=== PATIENT | male | born 1985 | race Two or more races ===

== ENCOUNTER 2024-12-10 07:09 | Emergency (ER) | payer MEDICAID, SELFPAY ==
[2024-12-10 07:10] VITALS: BMI 30.7
[2024-12-10 07:18] VITALS: BP 129/75; PULSE 121; RESP 18; TEMP 36.7; O2SAT 98
--- NOTE | 2024-12-10 07:28 | EDNOTE_ITS ---
<Statement entered by Lacy Huddleston MD - 12/10/24 09:40> As co-signing physician, I was present and available for consult prn. I concur with the plan and care as documented by the midlevel provider. Nausea/Vomit./Diarrhea-RME/HPI General Chief complaint: Nausea/Vomiting/Diarrhea Stated complaint: NOT FEELING WELL AFTER DRINKING Time Seen by Provider: 12/10/24 07:24 Arrival date/time: 12/10/24 07:09 Limitations: no limitations RME / HPI RME / HPI Narrative: 39yo male here s/p heavy drinking last night. He was drinking [employer] and lost track of how manyk. States he is disappointed because he has been sober for 13 years. Has vomited about 10 times since last night. No history of ever being admitted for withdrawal. No history of pancreatitis. No fever. No diarrhea. States feels shaky. Did not hit head. No seizure activity. Related Data Home Medications ?Medication ?Instructions ?Recorded ?Confirmed esomeprazole magnesium 20 mg 20 mg PO QDAY 04/27/21 capsule,delayed release (Nexium) Previous Rx's ?Medication ?Instructions ?Recorded meclizine 25 mg tablet 25 mg PO BID PRN dizziness # 20 tabs 04/27/21 ondansetron 4 mg disintegrating 4 mg PO Q8H PRN nausea and 12/10/24 tablet vomiting #10 tabs Allergies Allergy/AdvReac Type Severity Reaction Status Date / Time No Known Allergies Allergy Verified 12/10/24 07:12 Review of Systems Review of Systems Systems Reviewed: All systems reviewed, normal except as documented Constitutional Constitutional: Denies fever(s) Gastrointestinal Gastrointestinal: Reports as per HPI ED Exam General Limitations: Present no limitations General appearance: Present alert and other (mild distress, dry heaving in blue bag ) Head Head exam: Present atraumatic Eye Eye exam: Present normal appearance, PERRL and EOMI ENT ENT exam: Present normal exam, normal oropharynx and mucous membranes moist Neck Neck exam: Present normal inspection, full ROM and trachea midline Chest Chest inspection: Present normal inspection and symmetric chest wall rise Respiratory Respiratory exam: Present normal lung sounds bilaterally Cardiovascular Cardiovascular exam: Present regular rate, normal rhythm and normal heart sounds Abdominal Exam Abdominal exam: Present soft and normal bowel sounds Extremities Exam Extremities exam: Present normal inspection and full ROM Back Exam Back exam: Present normal inspection and full ROM Neurological Exam Neurological exam: Present alert, oriented X3 and CN II-XII intact Psychiatric Psychiatric exam: Present normal affect and normal mood Skin Skin exam: Present warm, dry, intact and normal color Course Quality Measures none Orders Category Date Time Status DiphenhydrAMINE INJ [Benadryl Inj] Med 12/10/24 07:28 Discontinued 50 mg IM X1 ONE Ketorolac Inj [Toradol Inj] Med 12/10/24 07:28 Discontinued 30 mg IM X1 ONE LORazepam [Ativan] Med 12/10/24 07:28 Discontinued 1 mg PO X1 ONE Ondansetron Odt [Zofran Odt] Med 12/10/24 07:28 Discontinued 4 mg PO X1 ONE Vital Signs Vital signs: Vital Signs Temperature 98.0 F 12/10/24 07:18 Pulse Rate 121 H 12/10/24 07:18 Respiratory Rate 18 12/10/24 07:18 Blood Pressure 129/75 12/10/24 07:18 Pulse Oximetry (%) 98 12/10/24 07:18 Nausea/Vomiting/Diarrhea MDM Narrative MDM Narrative:: 3-year-old male with acute alcohol abuse. Does not warrant further workup due to mild clinical findings. Responded to medication, discussed hydration . advise follow-up with PCP return to ER symptoms worsen Patient data External records reviewed:: [facility] previous records Clinical information provided by:: patient Social determinants that could affect healthcare access:: alcohol use Patient has the following chronic illnesses:: hx of alcoholism, in remission How is presenting disease/condition affected by chronic disease/condition?: exa cerbated by Evaluation data The following diagnostics were reviewed and interpreted by me:: other (specify) (none) Lab and/or radiology exams considered but not ordered:: CMP and lipase were considered however due to national shortage of lipase testing and unlikely to change the prognosis for discharge today opted against workup rather opted for medical interventions Interpretation Summary: Nontender breath Medications / Prescriptions Medications / Prescriptions considered but not ordered:: Benzos for home considered however due to acute abuse unlikely to go into withdrawal. Medication administrations:: Medication Administration History Discontinued Medications Diphenhydramine HCl (Diphenhydramine Inj 50 Mg/Ml Vial) 50 mg IM X1 ONE Stop: 12/10/24 07:29 Last Admin: 12/10/24 07:42 Dose: 50 mg Documented By: DO Ketorolac Tromethamine (Ketorolac Inj 30 Mg/Ml Vial) 30 mg IM X1 ONE Stop: 12/10/24 07:29 Last Admin: 12/10/24 07:43 Dose: 30 mg Documented By: DO Lorazepam (Lorazepam 0.5 Mg Tablet) 1 mg PO X1 ONE Stop: 12/10/24 07:29 Last Admin: 12/10/24 07:40 Dose: 1 mg Documented By: DO Ondansetron HCl (Ondansetron Odt 4 Mg Tabrap) 4 mg PO X1 ONE; Protocol Stop: 12/10/24 07:29 Last Admin: 12/10/24 07:41 Dose: 4 mg Documented By: DO See above Consultations Consultation(s) initiated? (list below): No Diagnosis Nausea Differential Diagnosis: traveler's diarrhea, food poisoning, gastroenteritis, clostridium difficile infection, drug-induced nausea and vomiting, dehydration and other Most likely diagnosis given after review of the tests above:: Alcohol abuse Vomiting Admission Indicated Admission indicated?: not indicated Admission Request Was there a request for admission?: No Disposition Plan Disposition Plan: Discharge Discharge Attestation Discharge Attestation: The patient and all family members were given an opportunity to ask questions and understood the discharge instructions. Discharge instructions specifically effects, indications for sooner follow up or return to the emergency department, and the expected course of current diagnosis. Patient condition: Stable Discharge Plan Plan Patient Disposition: HOME (Self Care) Discharge Disposition comment: f/u with pcp in 2-3days Prescriptions/Referrals Prescriptions/Med Rec: New ondansetron 4 mg tablet,disintegrating 4 mg PO Q8H PRN (Reason: nausea and vomiting) Qty: 10 0RF No Action esomeprazole magnesium [Nexium] 20 mg Capsule,Delayed Release(Dr/Ec) 20 mg PO QDAY meclizine 25 mg tablet 25 mg PO BID PRN (Reason: dizziness) Qty: 20 0RF Problem List Clinical Impression: Alcohol abuse, Vomiting Patient/Caregiver Discharge Instructions Education Materials: ED Diet for Vomiting or ... Print Language: Tajik Stand Alone Forms: Nevin Award Info., Patient Portal Info Letter PA/PLANTING MATERIAL CARRIER Supervising Physician PA/PLANTING MATERIAL CARRIER Supervising Physician: Dr. Huddleston
[2024-12-10] MEDS: ONDANSETRON ODT 4 MG TABRAP PO (07:41)
[2024-12-10] MEDS: KETOROLAC INJ 30 MG/ML VIAL IM (07:43)
[2024-12-10 07:50] VITALS: PULSE 102
== END 2024-12-10 08:11 | disposition home or self-care (01) ==
LOC: SERX 08:10
PROVIDERS: Emergency Provider Emergency Medicine; PCP Family Medicine
DX: F10.10 Alcohol abuse, uncomplicated (principal); R11.2 Nausea with vomiting, unspecified
CPT/HCPCS: 96372; 99283; J1200; J1885; Q0162; A9270

== ENCOUNTER 2025-01-30 22:51 | Emergency (ER) | payer MEDICAID, SELFPAY ==
[2025-01-30 22:52] VITALS: BMI 28.8
[2025-01-30 23:23] VITALS: BP 133/90; PULSE 100; RESP 18; TEMP 36.6; O2SAT 97
--- NOTE | 2025-01-30 23:30 | EDNOTE_ITS ---
ED Abdominal Pain RME/HPI General Chief Complaint: Nausea/Vomiting/Diarrhea Stated complaint: DIZZINESS AND VOMITING X 2DAYS Time seen by provider: 01/30/25 23:29 Arrival date/time: 01/30/25 22:51 RME / HPI RME / HPI narrative: See [facility] for Dr. Beck's HPI Documentation. Related Data Home Medications ?Medication ?Instructions ?Recorded ?Confirmed esomeprazole magnesium 20 mg 20 mg PO QDAY 04/27/21 capsule,delayed release (Nexium) Previous Rx's ?Medication ?Instructions ?Recorded meclizine 25 mg tablet 25 mg PO BID PRN dizziness # 20 tabs 04/27/21 ondansetron 4 mg disintegrating 4 mg PO Q8H PRN nausea and 12/10/24 tablet vomiting #10 tabs famotidine 40 mg tablet 40 mg PO .bedtime #30 tabs 1 04/02/24 omeprazole 40 mg capsule,delayed 40 mg PO QDAY #30 cap s 01/31/25 release ondansetron 4 mg disintegrating 4 mg PO TID PRN nausea and 01/31/25 tablet vomiting 30 days #10 tabs Allergies Allergy/AdvReac Type Severity Reaction Status Date / Time ibuprofen (From Advil) Allergy Mild RASH Verified 01/30/25 22:53 Review of Systems Review of Systems Systems Reviewed: All systems reviewed, normal except as documented Past Medical History Social History SMOKING STATUS: Never smoker ALCOHOL: Current ED Exam Narrative Physical exam: See [facility] for Dr. Beck's Physical Exam Documentation. Course Quality Measures none Orders Category Date Time Status Saline [Insert IV] NOW Care 01/30/25 23:[address] abdomen pelvis wo con Stat Exams 01/30/25 23:33 Taken US gall bladder Stat Exams 01/31/25 00:04 Taken Amylase Stat Lab 01/30/25 23:45 Completed Bilirubin,Direct Stat Lab 01/30/25 23:45 Completed CBC Stat Lab 01/30/25 23:45 Completed CMP [Comprehensive Metabolic Panel] Stat Lab 01/30/25 23:45 Completed Lipase Stat Lab 01/30/25 23:45 Completed Magnesium Stat Lab 01/30/25 23:45 Completed UA, C/S IF [Urinalysis, C/S if Indicated] Stat Lab 01/30/25 00:34 Completed Famotidine Inj [Pepcid Inj] Med 01/30/25 23:32 Discontinued 20 mg IVP X1 ONE Morphine* Inj Med 01/30/25 23:32 Discontinued 4 mg IV X1 ONE Ondansetron Inj [Zofran Inj] Med 01/30/25 23:32 Discontinued 4 mg IVP X1 ONE Pantoprazole Inj [Protonix Inj] Med 01/30/25 23:32 Discontinued 40 mg IVP X1 ONE Ringers Lactated 1000 ml [Lactated Ringers] 1,000 ml Med 01/30/25 23:30 Discontinued IV 1,000 mls/hr Sodium Chloride 0.9% 1000 ml [Ns] 1,000 ml Med 01/31/25 00:26 Discontinued IV 999 mls/hr Vital Signs Vital signs: Vital Signs Temperature 97.9 F 01/30/25 23:23 Pulse Rate 100 01/30/25 23:23 Respiratory Rate 18 01/30/25 23:23 Blood Pressure 133/90 H 01/30/25 23:23 Pulse Oximetry (%) 97 01/30/25 23:23 Oxygen Delivery Method Room Air 01/30/25 23:23 Abdominal Pain MDM MDM Narrative MDM Narrative:: This section includes all my notes and documentations, including HPI, PE, and ED course. Bill Beck MD HPI: 39 y/o male with Hx of Alcohol Abuse presents with upper abdominal pain and vomiting x approximately 48 hours. No other complaints. ROS: All negative except as documented in HPI. Physical Exam: General: Alert and oriented. Appears uncomfortable. Eyes: Conjunctivae and lids clear. ENT: No nasal congestion. Neck: Supple. Heart: RRR. Lungs: No respiratory distress. Good air movement. No rhonchi, wheezing, rales. Abdomen: Soft with epigastric tenderness. Normal bowel sounds. No distension. No rebound or guarding. Back: No CVA tenderness. Skin: Warm and dry. Neuro: Alert and oriented X 3. I reviewed all diagnostic test results: My review of the Gall Bladder US report is: No acute findings. My review of the Abdomen/Pelvis CT report is: No acute findings. Blood tests and urine tests unremarkable. At this point, diagnoses include: Stomach Ulcer Treatment here included: IVF Zofran 4 mg IV Morphine 4 mg IV Famotidine 20 mg IV Protonix 40 mg IV He felt much better. Recommended more outpatient workup. Based on my best medical judgment, made decision no further evaluation or treatment indicated at this time. Patient understands and agrees to the discharge instructions customized and printed, see below. Discharge instructions from Dr. Beck: ?After evaluation, your symptoms are due to stomach ulcer (see attached hand out).? There is no emergency such as appendicitis needing emergent surgery. ?To help heal the ulcer, take Omeprazole 40 mg every morning and Famotidine 40 mg at bedtime for a month. ?Zofran for nausea/vomiting.? Clear liquid diet for 24 hours.? Then slowly advance diet as tolerated. ?Avoid food and beverages that can trigger and worsen ulcers.? See attached handout. ?See a private doctor on 02/01/2025. Ask to review all test results and official radiology reports, to make sure you receive all necessary follow-ups and monitoring. To make sure there is no serious intra-abdominal condition, ask for help with more investigation not available here in the ER.? Such as EGD or scoping the stomach, colonoscopy or scoping the colon, and referral to see chocolate production machine operator. ?Seek immediate medical care with worsening or with any concerns. Bill Beck MD Patient data External records reviewed:: [facility] previous records (Reviewed prior ED records from 12/10/24. Patient was seen for Alcohol abuse.) Clinical information provided by:: patient Social determinants that could affect healthcare access:: alcohol use Patient has the following chronic illnesses:: None reported How is presenting disease/condition affected by chronic disease/condition?: no chronic disease Evaluation data The following diagnostics were reviewed and interpreted by me:: lab results and radiology exam(s) Lab and/or radiology exams considered but not ordered:: None Interpretation Summary: I reviewed all diagnostic test results: My review of the Gall Bladder US report is: No acute findings. My review of the Abdomen/Pelvis CT report is: No acute findings. Blood tests and urine tests unremarkable. Medications / Prescriptions Medications or Prescriptions considered but not ordered:: None Medication administrations:: Medication Administration History Discontinued Medications Famotidine (Famotidine Inj 10 Mg/Ml Vial 2 Ml) 20 mg IVP X1 ONE Stop: 01/30/25 23:33 Last Admin: 01/30/25 23:50 Dose: 20 mg Documented By: BRITTANIE Lactated Ringer's (Lactated Ringers) 1,000 mls @ 1,000 mls/hr IV .Q1H ONE Stop: 01/31/25 00:29 Last Infusion: 01/31/25 00:54 Dose: Infused Documented By: Admin: 01/30/25 23:54 Dose: 1,000 mls/hr Documented By: BRITTANIE Sodium Chloride (Ns) 1,000 mls @ 999 mls/hr IV .Q1H1M ONE Stop: 01/31/25 01:26 Last Infusion: 01/31/25 02:42 Dose: Infused Documented By: Admin: 01/31/25 01:07 Dose: 999 mls/hr Documented By: BRITTANIE Morphine Sulfate (Morphine Sulf Inj 4 Mg/Ml Vial) 4 mg IV X1 ONE Stop: 01/30/25 23:33 Last Admin: 01/30/25 23:48 Dose: 4 mg Documented By: BRITTANIE Ondansetron HCl (Ondansetron Inj 2 Mg/Ml Inj 2 Ml) 4 mg IVP X1 ONE; Protocol Stop: 01/30/25 23:33 Last Admin: 01/30/25 23:46 Dose: 4 mg Documented By: BRITTANIE Pantoprazole Sodium (Pantoprazole Inj 40 Mg Vial) 40 mg IVP X1 ONE Stop: 01/30/25 23:33 Last Admin: 01/30/25 23:52 Dose: 40 mg Documented By: BRITTANIE Treatment here included: IVF Zofran 4 mg IV Morphine 4 mg IV Famotidine 20 mg IV Protonix 40 mg IV Consultations Consultation(s) initiated? (list below): No Diagnosis Differential diagnosis abdominal pain: abdominal pain, pancreatitis and other (Cirrhosis, GERD, Ulcer) Most likely diagnosis given after review of the tests above:: Stomach Ulcer Admission Indicated Admission indicated?: not indicated Explain why admission is indicated or not indicated:: With significant improvement and no condition needing emergent intervention, there was no indication for admission. Admission Request Was there a request for admission?: No Disposition Plan Disposition Plan: Discharge Discharge Attestation Discharge Attestation: The patient and all family members were given an opportunity to ask questions and understood the discharge instructions. Discharge instructions specifically effects, indications for sooner follow up or return to the emergency department, and the expected course of current diagnosis. Patient condition: Stable Discharge Plan Plan Patient Disposition: HOME (Self Care) Prescriptions/Referrals Prescriptions/Med Rec: New famotidine 40 mg tablet 40 mg PO .bedtime Qty: 30 0RF omeprazole 40 mg capsule,delayed release(DR/EC) 40 mg PO QDAY Qty: 30 0RF ondansetron 4 mg tablet,disintegrating 4 mg PO TID PRN (Reason: nausea and vomiting) 30 Days Qty: 10 0RF No Action esomeprazole magnesium [Nexium] 20 mg Capsule,Delayed Release(Dr/Ec) 20 mg PO QDAY meclizine 25 mg tablet 25 mg PO BID PRN (Reason: dizziness) Qty: 20 0RF ondansetron 4 mg tablet,disintegrating 4 mg PO Q8H PRN (Reason: nausea and vomiting) Qty: 10 0RF Referrals: Temporary Provider,ED [Physician, Emergency Medicine] - In 1 week Problem List Clinical Impression: Stomach ulcer Patient/Caregiver Discharge Instructions Discharge Activity: activity as tolerated Education Materials: ED PUD Additional Instructions: Discharge instructions from Dr. Beck: ?After evaluation, your symptoms are due to stomach ulcer (see attached handout).? There is no emergency such as appendicitis needing emergent surgery. ?To help heal the ulcer, take Omeprazole 40 mg every morning and Famotidine 40 mg at bedtime for a month. ?Zofran for nausea/vomiting.? Clear liquid diet for 24 hours.? Then slowly advance diet as tolerated. ?Avoid food and beverages that can trigger and worsen ulcers.? See attached handout. ?See a private doctor on 02/01/2025. Ask to review all test results and official radiology reports, to make sure you receive all necessary follow-ups and monitoring. To make sure there is no serious intra-abdominal condition, ask for help with more investigation not available here in the ER.? Such as EGD or scoping the stomach, colonoscopy or scoping the colon, and referral to see chocolate production machine operator. ?Seek immediate medical care with worsening or with any concerns. Instrucciones de marie del Dr. Beck: ?Tras la evaluaci?n, valentin s?ntomas se deben a hailee ?lcera estomacal (catrachita folleto adjunto). No se trata de hailee emergencia, debbie apendicitis, que requiera cirug?a urgente. ?Para ayudar a cicatrizar la ?lcera, tome 40 mg de omeprazol cada ma?chelsea y 40 mg de famotidina antes de acostarse rula un mes. ?Para las n?useas y los v?mitos, tome Zofran. Siga hailee dieta l?quida alireza rula 24 horas. Posteriormente, vaya introduciendo gradualmente nuevos alimentos seg?n forrest tolerancia. ?Evite los alimentos y bebidas que puedan desencadenar o empeorar las ?lceras. Consulte el folleto adjunto. ?Consulte a un m?dico particular el 5 2024. Solicite revisar todos los resultados de las pruebas y los informes radiol?gicos oficiales para asegurarse de recibir el seguimiento y la monitorizaci?n necesarios. Para descartar cualquier afecci?n intraabdominal grave, solicite m?s pruebas diagn?sticas que no est?n disponibles en urgencias. Pruebas debbie hailee endoscopia digestiva marie (DARSHAN) o hailee colonoscopia, y la derivaci?n a un gastroenter?logo. ?Busque atenci?n m?dica inmediata si los s?ntomas empeoran o si tiene alguna inquietud. Print Language: Prydeinig Stand Alone Forms: Nevin Award Info., Patient Portal Info Letter
--- NOTE | 2025-01-30 23:33 | XR_ITS ---
Examination: CT abdomen and pelvis without contrast. Coronal 3-D reconstructions. Sagittal 2-D reconstructions. Date and time of exam: January 31, 2025, 0134 hours INDICATIONS: Dizziness vomiting abdominal pain beginning 2 days ago CTDI: vol (mGy): 8.24 DLP: (mGycm): 481 Technique: Axial images of the abdomen have been obtained, 3 mm slice thickness Intravenous contrast material has not been administered. Low dose protocols were performed. One or more of the following dose reduction techniques were used; automated exposure control, adjustment of the mA and/or KV according to patient size, use of iterative reconstruction technique. Findings: Severe diffuse fatty infiltration throughout the liver Hepatomegaly 18 cm Spleen is not enlarged No gallstones No pancreatic or adrenal mass Bilateral renal calculi, the largest left kidney 9 mm Aorta normal size Normal appendix No bowel obstruction or diverticulitis Transverse prostate dimension 4.1 cm No bladder mass or bladder calculi Moderate disc narrowing L5-S1 IMPRESSION: Hepatomegaly with severe diffuse fatty infiltration throughout the liver Bilateral renal calculi, minimal perinephric stranding, no hydronephrosis or ureteral calculi, consider urinary tract infection Normal appendix No bowel obstruction
[2025-01-30] MEDS: ONDANSETRON INJ 2 MG/ML INJ 2 ML 4 MG IVP (23:46)
[2025-01-30] MEDS: MORPHINE SULF INJ 4 MG/ML VIAL IV (23:48)
[2025-01-30 23:49] LABS: Basophils # (Auto) 0.0 Thou/mm3 (0.0-0.2); Basophils % (Auto) 0 % (0-2.5); Eosinophils # (Auto) 0.0 Thou/mm3 (0.0-0.5); Eosinophils % (Auto) 0 % (0-10); Hematocrit 49.0 % (41.0-53.0); Hemoglobin 17.8 g/dL (13.5-16.0); Immature Granulocytes Auto 0.02 Thou/mm3 (0.00-0.00); Lymphocytes # (Auto) 0.6 Thou/mm3 (1.0-4.8); Lymphocytes % (Auto) 5 % (10-50); Mean Corpuscular HGB Conc 36.3 g/dl (31.0-37.0); Mean Corpuscular Hemoglobin 31.2 pg (25.0-35.0); Mean Corpuscular Volume 86 fL (80-100); Monocytes # (Auto) 0.1 Thou/mm3 (0.0-0.8); Monocytes % (Auto) 1 % (0-12); Neutrophils # (Auto) 11.1 Thou/mm3 (1.8-7.7); Neutrophils % (Auto) 94 % (37-80); Nucleated Red Blood Cell # 0.00 Thou/mm3 (0.00-0.00); Nucleated Red Blood Cell % 0 /100 WBC (0); Platelet Count 217 Thou/mm3 (140-440); RDW Standard Deviation 38.8 fL (35.1-43.9); Red Blood Count 5.70 Miln/mm3 (4.50-5.90); White Blood Count 11.8 Thou/mm3 (3.8-10.6)
[2025-01-30] MEDS: FAMOTIDINE INJ 10 MG/ML VIAL 2 ML 20 MG IVP (23:50)
[2025-01-30] MEDS: RINGERS LACTATED 1000 ML 1,000 ML IV (23:54)
--- NOTE | 2025-01-31 00:04 | XR_ITS ---
Examination: Abdomen sonogram, Limited Date and time of exam: 01/31/2025, 12:50 a.m. INDICATION: Right upper quadrant pain, nausea for 3 days COMPARISON: Technique: Real-time garcia scale transabdominal sonographic images of the upper abdomen obtained. FINDINGS: Gallbladder: No cholelithiasis or sludge. No gallbladder wall thickening or pericholecystic fluid. No reported pain with direct transducer pressure over the gallbladder. The common bile duct measures 0.35 cm. The pancreas is obscured by bowel gas. Liver is mildly enlarged, demonstrates diffusely increased echotexture compatible with severe hepatic steatosis on same-day CT. No liver mass detected. Patent main portal vein with hepatopetal flow. Patent IVC. No right upper quadrant ascites. IMPRESSION: Negative ultrasound for cholelithiasis, acute cholecystitis or biliary ductal obstruction. Mild hepatomegaly with severe diffuse hepatic steatosis.
[2025-01-31 00:10] LABS: Alanine Aminotransferase 47 U/L (10-49); Albumin, Serum 5.3 gm/dL (3.5-5.0); Albumin/Globulin Ratio 2.5 (1.2-2.2); Alkaline Phosphatase 106 U/L (46-116); Amylase 53 U/L (30-118); Anion Gap 12 (7-16); Aspartate Amino Transferase 33 U/L (0-34); BUN/Creatinine Ratio 9 Ratio (12-20); Bilirubin,Direct 0.3 mg/dL (0.0-0.3); Bilirubin,Total 1.1 mg/dL (0.3-1.2); Blood Urea Nitrogen 9 mg/dL (9-23); Calcium 10.0 mg/dL (8.3-10.6); Calcium (Corrected) 10.0 mg/dL (8.5-10.1); Carbon Dioxide 21.5 mMol/L (20.0-31.0); Chloride 102 mMol/L (98-107); Creatinine (Component) 1.0 mg/dL (0.6-1.3); Estimated Creatinine Clearance 101.5 mL/min (>60); Globulin 2.1 gm/dL (2.3-3.5); Glucose 157 mg/dL (74-106); Lipase 29 U/L (12-53); Magnesium 2.1 mg/dL (1.6-2.6); Osmolality,Calculated 271 (275-295); Potassium 4.1 mMol/L (3.4-5.1); Sodium 135 mMol/L (136-145); Total Protein 7.4 gm/dL (5.7-8.2); eGFR > 60 See Note
[2025-01-31 00:45] LABS: Collection Type, Urine Clean Catch; Squamous Epithelial Cell,Urine 0 /hpf (0-5)
[2025-01-31 00:53] LABS: Bilirubin,Urine Negative (Negative); Blood,Urine Negative (Negative); Clarity,Urine Clear (Clear/Hazy); Color,Urine Lt-Yellow (Lt Yel-Yel); Culture Indicated,Urine Not Indicated; Glucose, Urine Negative (Negative); Ketones,Urine 2+ (Negative); Leukocyte Esterase,Urine Negative (Negative); Nitrite,Urine Negative (Negative); PH,Urine 7.5 (5.0-7.0); Protein,Urine Negative (Neg - Trace); RBC,Urine 1 /hpf (0-3); Specific Gravity,Urine 1.013 (1.001-1.035); Urobilinogen,Urine Negative mg/dL (0.0-1.0); WBC,Urine 1 /hpf (0-5)
[2025-01-31] MEDS: SODIUM CHLORIDE 0.9% 1000 ML 1,000 ML 999 ML IV (01:07)
--- NOTE | 2025-01-31 01:54 | PRELIM_ITS ---
Gallbladder ultrasound. January 31, 2025 at 0050 hours Clinical history: Right upper quadrant tenderness. Nausea for 3 days. Findings: The visualized liver is normal in echogenicity. There is no intrahepatic biliary duct dilatation. No gallbladder calculus, wall thickening or pericholecystic fluid is identified. The main portal vein is patent and demonstrates hepatopetal flow. The common duct is normal in caliber at 3.5 mm. No free fluid is demonstrated on the submitted images. The pancreas is obscured by bowel gas. The inferior vena cava is patent. Impression: No obvious abnormality. Report Electronically Signed By: Paolo Lowry 01/31/2025 1:53:24 AM [EST]
--- NOTE | 2025-01-31 02:30 | PRELIM_ITS ---
CT scan of the abdomen and pelvis without intravenous contrast (axial sections with sagittal and coronal reformats) January 31, 2025 0133 hours Clinical History: Abdominal pain Comparison: Right upper quadrant ultrasound performed on the same day. Findings: The gallbladder, pancreas, spleen and adrenals are unremarkable on this noncontrast study. There is hepatomegaly with fatty infiltration. There are non-obstructing renal calculi bilaterally, the largest measuring 9 mm on the left. No evidence of bowel obstruction. A small fat-containing umbilical hernia is present. The appendix is within normal limits (images [id number]). There are occasional colonic diverticula without evidence of diverticulitis. There is no mesenteric or retroperitoneal adenopathy. The urinary bladder is unremarkable. There is no free fluid or free air. There is no abdominal aortic aneurysm. There are small fat-containing bilateral inguinal hernias. Mild degenerative disc disease is seen at L5-S1. Bibasilar streaky atelectasis is present. Please note that evaluation of soft tissue/vascular structures and bowel loops is limited due to absence of IV and oral contrast. Impression: 1. Non-obstructing renal calculi bilaterally. No ureteric calculus or ureteral obstruction. 2. Subtle nonspecific bilateral perinephric fat stranding, which may be due to intravenous infusion versus pyelonephritis. 3. Hepatomegaly with fatty infiltration. 4. No evidence of bowel obstruction. 5. Other findings as described above. Suggest clinical correlation and follow up accordingly. Report Electronically Signed By: Domingo Bowers 01/31/2025 2:30:03 AM [EST]
[2025-01-31 02:42] VITALS: BP 129/79; PULSE 90; RESP 16; TEMP 36.4; O2SAT 96
[2025-01-31 03:02] VITALS: BP 129/79; PULSE 86; RESP 16; TEMP 36.7; O2SAT 97
== END 2025-01-31 03:03 | disposition home or self-care (01) ==
PROVIDERS: Emergency Provider Emergency Medicine; PCP Family Medicine
DX: K25.9 Gastric ulcer, unspecified as acute or chronic, without hemorrhage or perforation (principal)
CPT/HCPCS: 36415; 74176; 76705; 80053; 81001; 82150; 82248; 83690; 83735; 85025; 96361; 96374; 96375; 99284; J2270; J2405; J2470; J3490; J7030; J7120